=== PATIENT | female | born 1980 ===

== ENCOUNTER 2019-08-14 10:28 | Emergency (ER) | payer OTHER ==
[2019-08-14 11:34] VITALS: BP 156/101
--- NOTE | 2019-08-14 12:43 | UC ---
Respiratory Complaint HPI - HPI Summary HPI Summary: 39-year-old female with history of asthma presents with complaints of cough, shortness of breath, wheezing. Patient states that she has a persistent cough for the past month. States one week ago came into the area for vacation and started noticing some worsening of cough with the shortness of breath and wheezing. She contacted her physician who started her on Flovent and a five- day course of prednisone which she finished days ago. States symptoms started to improve but 2 days ago returned, cough became productive for thick yellow sputum, and yesterday she had a subjective fever with chills and sweating. States she is using her albuterol inhaler 2-3 times a day and typically only needs to use prior to exercise. Denies nasal congestion, postnasal drip, sore throat, chest pain, palpitations, abdominal pain, nausea, or vomiting. - History of Current Complaint Chief Complaint: UCGeneralIllness Stated Complaint: COUGH Time Seen by Provider: 08/14/19 12:10 Hx Obtained From: Patient Hx Last Menstrual Period: 08/13/19 Pain Intensity: 2 - Allergies/Home Medications Allergies/Adverse Reactions: Allergies Allergy/AdvReac Type Severity Reaction Status Date / Time No Known Allergies Allergy Verified 08/14/19 11:34 Home Medications: Home Medications Albuterol HFA INHALER* [Ventolin HFA Inhaler*] 2 puff INH Q4H PRN 08/14/19 [ History Confirmed 08/14/19] Cetirizine* [ZyrTEC 10 MG TAB*] 10 mg PO DAILY 08/14/19 [History Confirmed 08/14] Etonogest/Eth.estradiol (Nf) [Nuvaring Vaginal Ring] 1 each VAGINAL .SEE COMMENTS 08/14/19 [History Confirmed 08/14/19] Fluticasone HFA 110 mcg(NF) [Flovent HFA 110 mcg(NF)] 1 puff INH BID 08/14/19 [ History Confirmed 08/14/19] Fluticasone NASAL SPRAY 50MCG* [Flonase NASAL SPRAY 50MCG*] 1 mg BOTH NARES BID 08/14/19 [History Confirmed 08/14/19] Levothyroxine TAB* [Synthroid TAB*] 75 mcg PO 0800 08/14/19 [History Confirmed 08/14/19] PMH/Surg Hx/FS Hx/Imm Hx Endocrine History: Thyroid Disease Respiratory History: Asthma - Surgical History Surgical History: Yes Surgery Procedure, Year, and Place: breast augmentation. right foot - Family History Known Family History: Positive: Non-Contributory - Social History Occupation: Employed Full-time Alcohol Use: Weekly Substance Use Type: None Smoking Status (MU): Never Smoked Tobacco Review of Systems All Other Systems Reviewed And Are Negative: Yes Constitutional: Positive: Fever, Chills Skin: Negative: Rash Eyes: Negative: Drainage, Eye Redness ENT: Negative: Sore Throat, Ear Ache, Nasal Discharge, Sinus Congestion, Sinus Pain/Tenderness Respiratory: Positive: Shortness Of Breath, Cough Cardiovascular: Negative: Palpitations, Chest Pain Gastrointestinal: Negative: Abdominal Pain, Vomiting, Nausea Genitourinary: Positive: Negative Musculoskeletal: Positive: Negative Neurological: Positive: Negative Is Patient Immunocompromised?: No Physical Exam - Summary Physical Exam Summary: GENERAL APPEARANCE: Well developed, well nourished, alert and cooperative, and appears to be in no acute distress. EYES: Conjunctiva clear. No drainage. EARS: External auditory canals and tympanic membranes clear, hearing grossly intact. NOSE: No nasal discharge. THROAT: Pharynx normal. No tonsilar inflammation, swelling, exudate, or lesions. Uvula midline. NECK: Neck supple, non-tender without lymphadenopathy. CARDIAC: Normal S1 and S2. No S3, S4 or murmurs. Rhythm is regular. There is no peripheral edema, cyanosis or pallor. Extremities are warm and well perfused. Capillary refill is less than 2 seconds. Peripheral pulses intact. LUNGS: Clear to auscultation without rales, rhonchi, wheezing or diminished breath sounds. ABDOMEN: Positive bowel sounds. Soft, nondistended, nontender. No guarding or rebound. No masses or hepatosplenomegally. MUSKULOSKELETAL: ROM intact to all extremities. No joint erythema or tenderness. Normal muscular development. Normal gait. SKIN: Skin normal color, texture and turgor with no lesions or eruptions. Triage Information Reviewed: Yes Vital Signs: Initial Vital Signs Temp 98.9 F 08/14/19 11:30 Pulse 88 08/14/19 11:30 Resp 17 08/14/19 11:30 BP 156/101 08/14/19 11:30 Pulse Ox 100 08/14/19 11:30 Vital Signs Reviewed: Yes Respiratory Course/Dx - Course Course Of Treatment: 39-year-old female with history of asthma presents with complaints of cough, shortness of breath, wheezing. Patient states that she has a persistent cough for the past month. States one week ago came into the area for vacation and started noticing some worsening of cough with the shortness of breath and wheezing. She contacted her physician who started her on Flovent and a five- day course of prednisone which she finished days ago. States symptoms started to improve but 2 days ago returned, cough became productive for thick yellow sputum, and yesterday she had a subjective fever with chills and sweating. States she is using her albuterol inhaler 2-3 times a day and typically only needs to use prior to exercise. Denies nasal congestion, postnasal drip, sore throat, chest pain, palpitations, abdominal pain, nausea, or vomiting. Afebrile. Hypertensive otherwise vital signs stable. Patient's exam was overall unremarkable including clear bilateral breath sounds. Discussed with the patient that considering the duration of her symptoms, the persistent shortness of breath and wheezing, and subjective fever recommending that we treat her for an acute bronchitis with a course of azithromycin and place her on a prednisone taper to help with the persistent wheezing. She is returning home in 2 days and is to follow-up with her primary care provider in 3-5 days especially if symptoms are not improving. Anticipatory guidance and warning symptoms were reviewed with the patient. Verbalizes understanding and agrees with plan of care. - Differential Dx/Diagnosis Differential Diagnosis/HQI/PQRI: Asthma, Bronchitis, Lower Resp Infection Provider Diagnosis: Acute bronchitis with asthma Discharge ED - Sign-Out/Discharge Documenting (check all that apply): Patient Departure All imaging exams completed and their final reports reviewed: No Studies - Discharge Plan Condition: Stable Disposition: HOME Prescriptions: Azithromyxin PHYLICIA (NF) [Z-Phylicia (Zithromax) 250 mg tabs #6] 2 tab PO .TODAY, THEN 1 DAILY #6 tab predniSONE 10 mg TAB [Deltasone 10 MG TAB*] 10 mg PO DAILY #30 tab Patient Education Materials: Asthma (ED), Acute Bronchitis (ED) Referrals: No Primary Care Phys,NOPCP [Primary Care Provider] - Additional Instructions: Your history and exam are consistent with acute bronchitis. Considering the duration and worsening of symptoms we will start you on an antibiotic for the infection. Start azithromycin 2 tabs today then 1 tab a day for 4 days. We will start you on a prednisone taper for the persistent wheezing. Take 40 mg (4 tabs) for 3 days, then 30 mg (3 tabs) for 3 days, then 20 mg (2 tabs) for 3 days, then 10 mg (1 tab) for 3 days, then stop. Get plenty of rest. Drink plenty of fluids. Run a cool mist humidifer in your room at night. Take over the counter acetaminophen (Tylenol) or ibuprofen (Advil, Motrin) according to directions as needed for pain or fever. Follow up with your primary care provider in 3-5 days if symptoms do not improve. Seek immediate medical attention in the emergency room if you have fever greater than 100.5 F despite taking acetaminophen or ibuprofen, have chest pain , difficulty breathing, or have any worsening of symptoms. - Billing Disposition and Condition Condition: STABLE Disposition: Home
== END 2019-08-14 13:08 | disposition home or self-care (01) ==
LOC: UCEAST 10:28
DX: J45.909 Unspecified asthma, uncomplicated (principal); J20.9 Acute bronchitis, unspecified; I10 Essential (primary) hypertension; Z79.899 Other long term (current) drug therapy
CPT/HCPCS: 99202; G0463